=== PATIENT | female | born 1995 | race African-American/Black ===

== ENCOUNTER → 2018-04-28 | Outpatient (CLI) | payer OTHER ==
[~2018-04-28] MED LIST: CIPROFLOXIN HC2.5 M1 OPHTHALMIC
[2018-04-28 11:29] LABS: ABSOLUTE NEUTROPHILS 6.3 thou/uL (1.4-8.2); BASOPHILS 0.8 % (0.0-2.0); EOSINOPHILS 1.1 % (0.0-3.0); HEMATOCRIT 33.3 % (37.0-47.0); HEMOGLOBIN 11.2 gm/dL (12.0-15.0); LYMPHOCYTES 31.3 % (24.0-44.0); MCH 29.8 pg (26.0-34.0); MCHC 33.8 g/dL (28.0-37.0); MCV 88.2 fL (80.0-100.0); MONOCYTES 5.5 % (1.0-8.0); PLATELET COUNT 289 thou/uL (150-400); POLYS 61.3 % (36.0-66.0); RBC 3.78 mil/uL (4.20-5.00); RDW 12.8 % (10.5-14.5); WBC 10.2 thou/uL (4.0-11.0)
[2018-04-28 11:41] LABS: ALBUMIN 3.8 g/dL (3.4-5.0); CALCIUM 9.5 mg/dL (8.5-10.1); CREATININE 0.9 mg/dL (0.6-1.0); POTASSIUM 3.8 mmol/L (3.5-5.1); TOTAL BILIRUBIN 0.5 mg/dL (<0.1-1.0); TOTAL PROTEIN 7.5 g/dL (6.4-8.2)
[2018-04-29 14:07] LABS: FOLIC ACID 13.2 ng/mL (8.6-58.9)
== END ==
LOC: ULTRA 09:56
PROVIDERS: Dentist Oral and Maxillofacial Surgery
DX: R10.12 Left upper quadrant pain (principal); R63.4 Abnormal weight loss; R53.83 Other fatigue